=== PATIENT | male | born 1965 | race Caucasian/White ===

== ENCOUNTER 2021-07-28 08:26 | Day surgery (SDC) | payer BC, MEDICAID ==
[2021-07-28] MEDS ORDERED: Sodium Chloride 0.9% 1,000 ML IV SCH (08:45)
[2021-07-28 09:38] LABS: CORONAVIRUS COVID-19 NAA NEGATIVE (NEGATIVE)
[2021-07-28] MEDS ORDERED: Propofol 200 MG/20 ML SDV ONE (10:06)
[2021-07-28] MEDS ORDERED: Midazolam 1 MG/ML 2 ML SDV ONE (10:06)
[2021-07-28] MEDS ORDERED: fentaNYL 100 MCG/2 ML SDV ONE (10:06)
[2021-07-28 11:21] VITALS: BP 128/88; PULSE 58
== END 2021-07-28 11:38 | disposition home or self-care (01) ==
LOC: JP.SDS 08:26
PROVIDERS: ATTEND Surgery
DX: R19.5 Other fecal abnormalities (principal); K20.90 Esophagitis, unspecified without bleeding; F90.9 Attention-deficit hyperactivity disorder, unspecified type; Z01.812 Encounter for preprocedural laboratory examination; Z20.822 Contact with and (suspected) exposure to COVID-19
CPT/HCPCS: 0241U; 43239; 45378; 88305; J2250; J2704; J3010; J7030

== ENCOUNTER 2022-04-28 00:14 | Emergency (ER) | payer OTHER, BC, MEDICAID ==
[2022-04-28] MEDS ORDERED: Ketorolac 30 MG/ML SDV IM ONE (01:34)
[2022-04-28] MEDS ORDERED: Methocarbamol 500 MG Tab PO ONE (01:35)
== END 2022-04-28 01:52 | disposition home or self-care (01) ==
LOC: JP.ED 00:14
DX: S53.401A Unspecified sprain of right elbow, initial encounter (principal); S70.11XA Contusion of right thigh, initial encounter; M62.830 Muscle spasm of back; V53.5XXA Driver of pick-up truck or van injured in collision with car, pick-up truck or van in traffic accident, initial encounter; Y92.410 Unspecified street and highway as the place of occurrence of the external cause
CPT/HCPCS: 96372; 99283; A9270; J1885